=== PATIENT | female | born 1960 | race African-American/Black ===

== ENCOUNTER 2023-11-26 11:38 | Emergency (ER) | payer MEDICAID ==
[~2023-11-26] VITALS: Ht 167.6 cm; Wt 77.1 kg
[~2023-11-26 11:38] MED LIST: DILT120C88 MT; LEVO-65 MT
[2023-11-26 11:50] VITALS: BP 120/84; PULSE 110; RESP 16; TEMP 98.4; O2SAT 100
== END 2023-11-26 12:44 | disposition home or self-care (01) ==
LOC: ER 12:42
DX: Z93.6 Other artificial openings of urinary tract status (principal)
CPT/HCPCS: 99281